=== PATIENT | male | born 1995 | race Caucasian/White ===

== ENCOUNTER 2022-07-22 02:14 | Day surgery (SDC) | payer OTHER, SELFPAY ==
[2022-07-06 10:40] VITALS: BMI 20.7
--- NOTE | 2022-07-22 07:26 | PM.HPGS ---
History of Present Illness History of Present Illness Consent: Risks, benefits, and alternatives have been discussed and questions answered. Patient agrees to proceed with procedure. Chief complaint: dysphagia Narrative: Neto Beatty is a 27 year old male With dysphagia for several Years.. Solid food will get caught when eating. He denies chronic heartburn. When something gets lodged he will drink carbonation to help it go down or he may need to bring it back up. Review of Systems Review of Systems: All systems reviewed & are unremarkable except as noted in HPI and below PMFSH Social History Social History Smoking status: Current every day smoker Tobacco type: e-cigarettes/vaping Second hand tobacco smoke exposure: No Alcohol intake: current Substance use: never Substance use type: does not use Living arrangements: with family Gender identity (if verbalized by the patient): Male Spiritual care concerns: No Meds Home Medications and Allergies Home Medications Medication Instructions Recorded Confirmed Type No Home Medications 07/06/22 07/22/22 History Allergies Allergy/AdvReac Type Severity Reaction Status Date / Time No Known Allergies Allergy Verified 07/22/22 09:52 Exam Const: General: alert Orientation/consciousness: patient oriented x3 Resp: Auscultation: clear to auscultation bilaterally Cardio: Rhythm: regular rhythm GI: GI Palp: Yes Soft to palpation and No Tenderness to palpation present (GI) Neuro: General: patient oriented x3 Assessment and Plan Assessment and plan (1) Dysphagia: Code(s): R13.10 - Dysphagia, unspecified Status: Acute Assessment and Plan: EGD with possible biopsy or dilatation or cautery.
[2022-07-22 09:54] VITALS: BP 117/63; PULSE 58; RESP 16; TEMP 36.6; O2SAT 100
[2022-07-22] MEDS: LACTATED RINGERS 1,000 ML 150 ML IV CONT (10:03)
--- NOTE | 2022-07-22 10:23 | P.PNAN_ITS ---
Anes - Initial Pre Proc Eval Procedure: Operation Date: 07/22/22 11:00 Proposed Procedures p Esophagogastroduodenoscopy EGD - Flynn Byrd MD Date/Time: 07/22/22 10:23 Surgeon: Flynn Byrd MD Pre Op Diagnosis: dysphagia Patient Data Age: 27 Gender: M Height: 1.75 m Weight: 58.7 kg Last Vital Signs Temp 97.9 F 07/22/22 09:54 Pulse 58 L 07/22/22 09:54 Resp 16 07/22/22 09:54 BP 117/63 07/22/22 09:54 Pulse Ox 100 07/22/22 09:54 O2 Del Method Room Air 07/22/22 09:54 Allergies Allergy/AdvReac Type Severity Reaction Status Date / Time No Known Allergies Allergy Verified 07/22/22 09:52 Home Medications Medication Instructions Recorded Confirmed Type No Home Medications 07/06/22 07/22/22 History Patient hx anesthesia problems: none Family hx anesthesia problems: none Results Review: All pre-operative results and documents have been reviewed as part of the pre- operative evaluation. [facility] Social History Social History Smoking status: Current every day smoker Tobacco type: e-cigarettes/vaping Second hand tobacco smoke exposure: No Alcohol intake: current Substance use: never Substance use type: does not use Living arrangements: with family Gender identity (if verbalized by the patient): Male Spiritual care concerns: No Anes - Eval Final PreProcedure Day of Procedure 07/22/22 10:23 Patient weight: normal Heart: regular rate and rhythm Lungs: clear to auscultation Airway: Mallampati scale class II Neurological: alert and oriented Last oral intake: >/= 8 hours ASA classification: II Emergent: no Anesthetic plan: proceed Anesthesia type and monitoring: general GIVS and standard monitoring Results Review: All pre-operative results and documents have been reviewed as part of the pre- operative evaluation. Informed Consent: The patient's anesthetic plan and its attendant risks and benefits were discusse d with the patient/family/POA. Questions were solicited and answers provided to the satisfaction of the patient/family/POA.
[2022-07-22 11:20] VITALS: BP 108/64; PULSE 67; RESP 13; O2SAT 97
[2022-07-22 11:30] VITALS: BP 102/56; PULSE 64; RESP 13; O2SAT 96
[2022-07-22 11:40] VITALS: BP 94/52; PULSE 50; RESP 12; O2SAT 98
[2022-07-22 11:50] VITALS: BP 111/62; PULSE 59; RESP 15; O2SAT 100
--- NOTE | 2022-07-22 12:20 | SUR.PHASEII ---
Patient bumped his head on the car door when getting into vehicle to go home. Patient denied need for further care.
== END 2022-07-22 12:20 | disposition home or self-care (01) ==
PROVIDERS: PCP Family Medicine; Visit Provider Internal Medicine Gastroenterology
PROC: 0DJ08ZZ Inspection of Upper Intestinal Tract, Via Natural or Artificial Opening Endoscopic (ICD-10-PCS; CPT 43235; principal; 2022-07-22 11:00)
DX: R13.19 Other dysphagia (principal); K22.2 Esophageal obstruction; K20.90 Esophagitis, unspecified without bleeding; F17.210 Nicotine dependence, cigarettes, uncomplicated
CPT/HCPCS: 43239; 88305; J2704; J7120

== ENCOUNTER 2022-09-23 00:30 | Day surgery (SDC) | payer OTHER, SELFPAY ==
[2022-09-09 09:16] VITALS: BMI 20.7
--- NOTE | 2022-09-22 16:31 | PM.HPGS ---
History of Present Illness History of Present Illness Consent: Risks, benefits, and alternatives have been discussed and questions answered. Patient agrees to proceed with procedure. Chief complaint: esophageal stricture Narrative: Neto Beatty is a 27 year old male Who was being investigated for severe dysphagia about 2 months ago when I found a stricture in the mid esophagus 7 cm long. Biopsies showed 51 eosinophils per HPF consistent with eosinophilic esophagitis. He was started on pantoprazole 40 mg daily. He returns now for reassessment and possible dilatation of the stricture. Review of Systems Review of Systems: All systems reviewed & are unremarkable except as noted in HPI and below PMFSH Past Medical History Medical History Smoker Surgical History Surgical History History of esophagogastroduodenoscopy (EGD) Social History Social History Smoking status: Current every day smoker Tobacco type: e-cigarettes/vaping Second hand tobacco smoke exposure: No Alcohol intake: current Substance use: never Substance use type: does not use Living arrangements: with family Gender identity (if verbalized by the patient): Male Spiritual care concerns: No Meds Home Medications and Allergies Home Medications Medication Instructions Recorded Confirmed Type pantoprazole 40 mg tablet,delayed 40 mg PO QAM #30 tabs 07/22/22 09/23/22 Rx release Allergies Allergy/AdvReac Type Severity Reaction Status Date / Time No Known Allergies Allergy Verified 09/23/22 08:12 Exam Const: General: alert Orientation/consciousness: patient oriented x3 Resp: Auscultation: clear to auscultation bilaterally Cardio: Rhythm: regular rhythm GI: GI Palp: Yes Soft to palpation and No Tenderness to palpation present (GI) Neuro: General: patient oriented x3 Assessment and Plan Assessment and plan (1) Eosinophilic esophagitis: Code(s): K20.0 - Eosinophilic esophagitis Status: Acute Assessment and Plan: EGD with possible biopsy or dilatation or cautery.
[2022-09-23 08:13] VITALS: BP 111/67; PULSE 58; RESP 15; TEMP 36; O2SAT 100; BMI 18.8
[2022-09-23] MEDS: LACTATED RINGERS 1,000 ML 150 ML IV CONT (08:21)
--- NOTE | 2022-09-23 08:25 | P.PNAN_ITS ---
Anes - Initial Pre Proc Eval Procedure: Operation Date: 09/23/22 09:30 Proposed Procedures p Esophagogastroduodenoscopy EGD - Flynn Byrd MD Date/Time: 09/23/22 08:25 Surgeon: Flynn Byrd MD Pre Op Diagnosis: esophageal stricture Patient Data Age: 27 Gender: M Height: 1.75 m Weight: 57.8 kg Last Vital Signs Temp 36.0 C L 09/23/22 08:13 Pulse 58 L 09/23/22 08:13 Resp 15 09/23/22 08:13 BP 111/67 09/23/22 08:13 Pulse Ox 100 09/23/22 08:13 O2 Del Method Room Air 09/23/22 08:13 Allergies Allergy/AdvReac Type Severity Reaction Status Date / Time No Known Allergies Allergy Verified 09/23/22 08:12 Home Medications Medication Instructions Recorded Confirmed Type pantoprazole 40 mg tablet,delayed 40 mg PO QAM #30 tabs 07/22/22 09/23/22 Rx release Patient hx anesthesia problems: none Family hx anesthesia problems: none Results Review: All pre-operative results and documents have been reviewed as part of the pre- operative evaluation. [facility] Past Medical History Medical History Smoker Surgical History Surgical History (Updated 09/23/22 @ 08:25 by Neal Corrales MD) History of esophagogastroduodenoscopy (EGD) Social History Social History Smoking status: Current every day smoker Tobacco type: e-cigarettes/vaping Second hand tobacco smoke exposure: No Alcohol intake: current Substance use: never Substance use type: does not use Living arrangements: with family Gender identity (if verbalized by the patient): Male Spiritual care concerns: No Anes - Eval Final PreProcedure Day of Procedure 09/23/22 08:25 Patient weight: thin Heart: regular rate and rhythm Lungs: clear to auscultation Airway: Mallampati scale class II Neurological: alert and oriented Last oral intake: >/= 8 hours ASA classification: II Emergent: no Anesthetic plan: proceed Anesthesia type and monitoring: general GIVS and standard monitoring Results Review: All pre-operative results and documents have been reviewed as part of the pre- operative evaluation. Informed Consent: The patient's anesthetic plan and its attendant risks and benefits were discussed with the patient/family/POA. Questions were solicited and answers provided to the satisfaction of the patient/family/POA.
[2022-09-23 09:19] VITALS: BP 94/59; PULSE 83; RESP 21; O2SAT 96
[2022-09-23 09:29] VITALS: BP 93/60; PULSE 80; RESP 14; O2SAT 97
[2022-09-23 09:39] VITALS: BP 97/59; PULSE 64; RESP 15; O2SAT 100
[2022-09-23 09:49] VITALS: BP 109/62; PULSE 60; RESP 13; O2SAT 100
== END 2022-09-23 09:52 | disposition home or self-care (01) ==
PROVIDERS: PCP Family Medicine; Visit Provider Internal Medicine Gastroenterology
PROC: 0DJ08ZZ Inspection of Upper Intestinal Tract, Via Natural or Artificial Opening Endoscopic (ICD-10-PCS; CPT 43235; principal; 2022-09-23 09:30)
DX: K20.0 Eosinophilic esophagitis (principal); K22.2 Esophageal obstruction; F17.290 Nicotine dependence, other tobacco product, uncomplicated
CPT/HCPCS: 43249; 88305; C1726; J2704; J7120